=== PATIENT | male | born 1990 | race Two or more races ===

== ENCOUNTER 2022-03-18 05:53 | Emergency (ER) | payer MEDICAID ==
[~2022-03-18] VITALS: Ht 180.3 cm; Wt 79.4 kg
--- NOTE | 2022-03-18 06:45 | NUR ---
[facility] C/O BACK PAIN FOR THE PAST 2 DAYS. PATIENT IS AMBULATORY, AAOX4. ABLE TO MAKE NEEDS KNOWN. VITALS CHECKED.
[2022-03-18] MEDS ORDERED: KETO10TA2 PO (07:07)
[2022-03-18] MEDS ORDERED: CYCL5TAB PO (07:07)
[2022-03-18] MEDS ORDERED: KETOROLAC TROMETHAMINE INJ 30 MG/ML VIAL ONE (07:08)
[2022-03-18] MEDS ORDERED: CYCLOBENZAPRINE 10 MG TABLET ONE (07:09)
[2022-03-18 07:18] VITALS: BP 134/77
--- NOTE | 2022-03-18 07:18 | NUR ---
Patient discharged to home in stable condition. Written and verbal after care instructions given. Patient verbalizes understanding of instruction.
[2022-03-18] MEDS ORDERED: KETOROLAC TROMETHAMINE INJ 30 MG/ML VIAL IM ONE (07:30)
[2022-03-18] MEDS ORDERED: CYCLOBENZAPRINE 10 MG TABLET PO ONE (07:30)
== END 2022-03-18 07:19 | disposition home or self-care (01) ==
LOC: ER 06:46
DX: S39.012A Strain of muscle, fascia and tendon of lower back, initial encounter (principal); Z60.2 Problems related to living alone; Z79.899 Other long term (current) drug therapy; W17.89XA Other fall from one level to another, initial encounter; Y93.89 Activity, other specified; Y92.89 Other specified places as the place of occurrence of the external cause; Y99.8 Other external cause status
CPT/HCPCS: 99283; 96372; J1885

== ENCOUNTER 2022-08-28 17:28 | Emergency (ER) | payer MEDICAID, OTHER ==
[~2022-08-28] VITALS: Ht 177.8 cm; Wt 90.7 kg
[~2022-08-28 17:28] MED LIST: CYCL5TAB PO; KETO10TA2 PO
[2022-08-28 18:58] LABS: CALCIUM, SERUM 9.3 mg/dL (8.5-10.1); CARBON DIOXIDE 21 mmol/L (21-32); CHLORIDE 97 mmol/L (98-107); CREATININE 1.2 mg/dL (0.6-1.3); GLUCOSE 96 mg/dL (74-106); SODIUM SERUM 135 mmol/L (136-145); UREA NITROGEN, BLOOD 30 mg/dL (7-18)
[2022-08-28 19:02] LABS: BASOPHILS # (AUTO) 0.2 K/uL (0.0-0.2); HEMATOCRIT 46 % (39-51); HEMOGLOBIN 15.5 g/dL (13.5-17.5); LYMPHOCYTES # (AUTO) 1.2 K/uL (0.8-4.8); LYMPHOCYTES % (AUTO) 6.8 % (20.0-44.0); MEAN CORPUSCULAR HGB CONC 33 g/dl (31.0-36.0); MEAN CORPUSCULAR VOLUME 86 fL (80-96); MONOCYTES # (AUTO) 2.8 K/uL (0.1-1.30); MONOCYTES % (AUTO) 15.8 % (2.0-12.0); NEUTROPHILS # (AUTO) 13.3 K/uL (1.8-8.9); NEUTROPHILS % (AUTO) 76.4 % (43.0-81.0); PLATELET COUNT (AUTO) 220 K/uL (150-450); RED BLOOD CELL COUNT(AUTO) 5.37 MIL/uL (4.5-6.0); WHITE BLOOD COUNT (AUTO) 17.4 K/uL (4.3-11.0)
[2022-08-28 19:04] LABS: ALANINE AMINOTRANSFERASE 31 U/L (12-78); ALBUMIN 4.5 g/dL (3.4-5.0); ALCOHOL, BLOOD < 3 mg/dL (0-0); ALKALINE PHOSPHATASE 57 U/L (46-116); ASPARTATE AMINOTRANSFERASE 32 U/L (15-37); BILIRUBIN,DIRECT 0.1 mg/dL (0.0-0.2); BILIRUBIN,TOTAL 0.5 mg/dL (0.2-1.0); TOTAL PROTEIN, SERUM 8.6 g/dL (6.4-8.2)
[2022-08-28 19:05] LABS: ACETAMINOPHEN < 10 ug/ml (10-30)
[2022-08-28 19:40] LABS: BAND % (MANUAL) 3 % (0.0-5.0); LYMPHOCYTES % (MANUAL) 5 % (16-48); MONOCYTES % (MANUAL) 5 % (0-11.0); NEUTROPHILS % (MANUAL) 87 (42-76)
[2022-08-28 20:10] LABS: BILIRUBIN,URINE NEGATIVE (NEGATIVE); COLOR,URINE YELLOW (YELLOW); LEUKOCYTE ESTERASE ,URINE NEGATIVE (NEGATIVE); NITRITE, URINE NEGATIVE (NEGATIVE); PROTEIN,URINE 2+ mg/dl (NEGATIVE); UGLUCOSE NEGATIVE (NEGATIVE); UROBILINOGEN,URINE 0.2 EU/dL (0.2)
[2022-08-28 20:23] LABS: BACTERIA,URINE Rare /HPF (None Seen); RBC,URINE NONE SEEN /HPF (0-2); SQUAMOUS EPITHELIAL CELL,UR None Seen /HPF (None Seen); WBC,URINE NONE SEEN /HPF (0-3)
[2022-08-28 20:24] LABS: MUCUS,URINE Few /LPF (None Seen)
[2022-08-28] MEDS ORDERED: POTASSIUM CHLORIDE 20 MEQ POWDER PACKET ONE (20:39)
[2022-08-28] MEDS: POTASSIUM CHLORIDE 20 MEQ POWDER PACKET PO ONE (20:42)
--- NOTE | 2022-08-28 20:53 | NUR ---
FACES[facility]E AND CLINICALS FAXED TO [facility].
[2022-08-29 06:30] VITALS: BP 138/84
--- NOTE | 2022-08-29 09:33 | NUR ---
RE-FAXED CLINICALS TO [facility].
--- NOTE | 2022-08-29 11:12 | NUR ---
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 All belongings sent with patient.
--- NOTE | 2022-08-29 11:12 | NUR ---
[facility] BY [facility]. STABLE CONDITION.
== END 2022-08-29 11:12 ==
LOC: ER 17:30
DX: R45.851 Suicidal ideations (principal); F32.A Depression, unspecified; Z20.822 Contact with and (suspected) exposure to COVID-19; Z60.2 Problems related to living alone
CPT/HCPCS: 99285; 85025; 80048; 80076; 85007; 81001; 36415; 87426; 80143; 80320; 80307; C9803; G0480